=== PATIENT | male | born 1985 | race Caucasian/White ===

== ENCOUNTER 2022-10-14 05:39 | Emergency (ER) | payer SELFPAY ==
[2022-10-14] MEDS: Sodium Chloride 0.9% 1,000 ML IV ONE (05:56)
[2022-10-14 08:26] VITALS: BP 151/107; PULSE 94
== END 2022-10-14 08:40 | disposition home or self-care (01) ==
LOC: LB.ED 05:39
DX: T68.XXXA Hypothermia, initial encounter (principal); F10.920 Alcohol use, unspecified with intoxication, uncomplicated; Z72.0 Tobacco use; Y90.6 Blood alcohol level of 120-199 mg/100 ml
CPT/HCPCS: 36415; 80048; 80307; 85027; 93005; 96360; 99284-25; A0425; A0429; J7030